=== PATIENT | male | born 1985 | race Caucasian/White ===

== ENCOUNTER 2017-08-15 14:47 | Emergency (ER) | payer OTHER ==
[2017-08-15 15:00] VITALS: TEMP 97.4; BMI 32.5
--- NOTE | 2017-08-15 15:42 | PDOC ---
History of Present Illness - History of Present Illness Initial Comments: 08/15/17 15:42 Patient is a 31M, with PMHx, of anxiety attacks, herniated disks (2013), who present to the ED with numbness and tingling in left arm and leg this morning. Patient states that he has been having chronic headache for the past 2 weeks, he saw his neurologist and had MRIs in past. He is also complaining of hyperventilating. He states that he drank a cup of coffee and noticed soon after that he began feeling anxious, hyperventilating, fatigue, left-sided numbness and tingling, and pulsating headache. Patient came to the ER because he is worried that he is having a stroke. Allergies: NKDA Social Hx: Denies smoking. Social EtOH PCP: Moshe Bates 08/15/17 15:42 Associated Symptoms: reports: headaches <Dawna Block - Last Filed: 08/15/17 16:07> - General History Source: Patient - History of Present Illness Timing/Duration: unsure Severity: mild Modifying Factors: improves with: rest <Roz Gaviria - Last Filed: 08/17/17 19:37> - General Chief Complaint: Lightheaded Stated Complaint: ANXIOUS, HYPERVENTILATORY, DIZZY Time Seen by Provider: 08/15/17 14:50 Past History <Dawna Block - Last Filed: 08/15/17 16:07> - Past Medical History Asthma: No Cardiac Disorders: Yes (PACs, mitral valve prolapse) COPD: No Diabetes: No HTN: No Psychiatric Problems: Yes (ANXIETY) Other medical history: HERNIATED DISC NECK AND BACK - Suicide/Smoking/Psychosocial Hx Smoking History: Never smoked Have you smoked in the past 12 months: No Information on smoking cessation initiated: No Hx Alcohol Use: Yes (SOCIAL) Drug/Substance Use Hx: No Substance Use Type: None <Roz Gaviria - Last Filed: 08/17/17 19:37> - Past Medical History Allergies/Adverse Reactions: Allergies Allergy/AdvReac Type Severity Reaction Status Date / Time No Known Allergies Allergy Verified 08/15/17 14:48 Home Medications: Ambulatory Orders Diazepam [Valium] 10 mg PO PRN 08/15/17 Review of Systems - Review of Systems Able to Perform ROS?: Yes Comments:: 08/15/17 15:43 GENERAL/CONSTITUTIONAL: No fever or chills. No weakness. HEAD, EYES, EARS, NOSE AND THROAT: No change in vision. No ear pain or discharge. No sore throat. CARDIOVASCULAR: No chest pain or shortness of breath. RESPIRATORY: +hyperventilating. No cough, wheezing, or hemoptysis. GASTROINTESTINAL: No nausea, vomiting, diarrhea or constipation. GENITOURINARY: No dysuria, frequency, or change in urination. MUSCULOSKELETAL: No joint or muscle swelling or pain. No neck or back pain. SKIN: No rash NEUROLOGIC: +headache, + left-sided numbness and tingling in extremities, no vertigo, loss of consciousness. ENDOCRINE: No increased thirst. No abnormal weight change. HEMATOLOGIC/LYMPHATIC: No anemia, easy bleeding, or history of blood clots. ALLERGIC/IMMUNOLOGIC: No hives or skin allergy. Is the patient limited [place] proficient: No Respiratory: Yes: Other (hyperventialation) Neurological: Yes: Headache, Numbness, Tingling Psychiatric: Yes: Anxiety All Other Systems: Reviewed and Negative <Dawna Block - Last Filed: 08/15/17 16:07> *Physical Exam - Vital Signs Last Vital Signs Temp Pulse Resp BP Pulse Ox 97.4 F L 116 H 20 160/100 100 08/15/17 14:48 08/15/17 14:48 08/15/17 14:48 08/15/17 14:48 08/15/17 14:48 - Physical Exam Comments: 08/15/17 15:46 GENERAL: Awake, alert, and fully oriented, in moderate distress HEAD: No signs of trauma EYES: PERRLA, EOMI, exophthalmos, sclera anicteric, conjunctiva clear ENT: Auricles normal inspection, hearing grossly normal, nares patent, oropharynx clear without exudates. Moist mucosa NECK: Normal ROM, supple, no lymphadenopathy, JVD, or masses LUNGS: Breath sounds equal, clear to auscultation bilaterally. No wheezes, and no crackles HEART: Tachycardic. Regular rate and rhythm, normal S1 and S2, no murmurs, rubs or gallops ABDOMEN: Soft, protuberant, nontender, normoactive bowel sounds. No guarding, no rebound. No masses EXTREMITIES: Normal range of motion, no edema. No clubbing or cyanosis. No cords, erythema, or tenderness NEUROLOGICAL: Cranial nerves II through XII grossly intact. Normal speech, normal gait SKIN: Warm, Dry, normal turgor, no rashes or lesions noted. General Appearance: Yes: Moderate Distress, Obese (overweight) HEENT: positive: SKYE Neck: positive: Supple Respiratory/Chest: positive: Rapid RR (hyperventilating) Cardiovascular: positive: Regular Rhythm, Regular Rate, Tachycardia Musculoskeletal: positive: Normal Inspection Extremity: positive: Normal Capillary Refill, Normal Inspection Integumentary: positive: Normal Color Neurologic: positive: Fully Oriented, Alert <Dawna Block - Last Filed: 08/15/17 16:07> - Vital Signs Last Vital Signs Temp Pulse Resp BP Pulse Ox 97.4 F L 116 H 20 160/100 100 08/15/17 14:48 08/15/17 14:48 08/15/17 14:48 08/15/17 14:48 08/15/17 14:48 <Roz Gaviria - Last Filed: 08/17/17 19:37> *DC/Admit/Observation/Transfer <Dawna Block - Last Filed: 08/15/17 16:07> - Discharge Dispostion Admit: No <Roz Gaviria - Last Filed: 08/17/17 19:37> Diagnosis at time of Disposition: Anxiety - Discharge Dispostion Disposition: HOME Condition at time of disposition: Improved - Referrals Referrals: Moshe Bates MD [Staff Physician] - - Patient Instructions Printed Discharge Instructions: DI for Anxiety -- Adult Additional Instructions: Follow up with DR Bates to check the results of Thyroid Function tests. Suggest to see a psychiatrist
[2017-08-15 16:09] VITALS: BP 121/78; PULSE 96
== END 2017-08-15 16:11 | disposition home or self-care (01) ==
LOC: FER 14:47
DX: F41.9 Anxiety disorder, unspecified (principal); I49.1 Atrial premature depolarization
CPT/HCPCS: 36415; 84443; 86376; 86800; 99281-25